=== PATIENT | male | born 2000 | race Two or more races ===

== ENCOUNTER 2021-11-24 00:28 | Emergency (ER) | payer OTHER ==
[~2021-11-24] VITALS: Ht 180.3 cm; Wt 100.0 kg
[2021-11-24] MEDS ORDERED: ACET-66 PO (02:59)
[2021-11-24] MEDS ORDERED: IBUP-2070 PO (02:59)
[2021-11-24 03:10] VITALS: BP 116/71
== END 2021-11-24 03:12 | disposition home or self-care (01) ==
LOC: EMS 00:34
DX: S83.92XA Sprain of unspecified site of left knee, initial encounter (principal); X50.1XXA Overexertion from prolonged static or awkward postures, initial encounter; Y93.89 Activity, other specified; Y92.511 Restaurant or cafe as the place of occurrence of the external cause; Y99.0 Civilian activity done for income or pay
CPT/HCPCS: 99283